=== PATIENT | male | born 1975 | race Caucasian/White ===

== ENCOUNTER 2018-07-30 15:21 | Emergency (ER) | payer MEDICAID ==
[2018-07-30] MEDS: ADACEL/BOOSTRIX VACCINE (DIPHTH/PERTUSS/ACELL/TETANUS)0.5ML SYR (90715) IM (16:16)
[2018-07-30] MEDS: LIDOCAINE 1% MDV 20ML VIAL SC (16:30)
[2018-07-30] MEDS: MORPHINE 2 MG/ML 1ML SYRINGE (J2270) IV (16:32)
== END 2018-07-30 18:38 | disposition home or self-care (01) ==
LOC: M ED 15:21
DX: S01.81XA Laceration without foreign body of other part of head, initial encounter (principal); T14.8XXA Other injury of unspecified body region, initial encounter; W17.89XA Other fall from one level to another, initial encounter; Y92.830 Public park as the place of occurrence of the external cause; R25.1 Tremor, unspecified
CPT/HCPCS: 90715